=== PATIENT | female | born 1985 | race Caucasian/White ===

== ENCOUNTER 2018-04-11 08:00 | Emergency (ER) | payer MEDICAID ==
[~2018-04-11] VITALS: Ht 158.8 cm; Wt 73.8 kg
[~2018-04-11 08:00] MED LIST: BENZ1LOZ61 PO; CLIN60GE TOP; GUAI120015 PO; GUAI600T45 PO; HYDR-4383 PO; LOPE2CAP PO; NO HOME MEDS; ONDA4TAB6 PO; ONDA8TAB9 PO; PREN1TAB79 PO
[2018-04-11] MEDS ORDERED: famotidine 20mg tablet PO ONE (08:40)
[2018-04-11] MEDS ORDERED: LIDOcaine Viscous 15ml cup PO ONE (08:40)
[2018-04-11] MEDS ORDERED: mag hydrox/Alum hydrox/simeth 30ml oral suspension PO ONE (08:40)
[2018-04-11 09:02] LABS: BASOPHILS % (AUTO) 0.5 % (0-1); EOSINOPHILS # (AUTO) 0.1 X10'3 (0-0.9); EOSINOPHILS % (AUTO) 1.5 % (0-6); HEMATOCRIT 35.4 % (35.0-45.0); HEMOGLOBIN 11.7 g/dl (12.0-16.0); LYMPHOCYTES # (AUTO) 2.6 X10'3 (1.1-4.8); LYMPHOCYTES % (AUTO) 35.1 % (21-51); MEAN CORPUSCULAR HEMOGLOBIN 29.4 PG (27.0-31.0); MEAN CORPUSCULAR VOLUME 89.1 FL (78-98); MEAN PLATELET VOLUME 8.3 FL (7.4-10.4); MONOCYTES # (AUTO) 0.3 X10'3 (0-0.9); MONOCYTES % (AUTO) 4.7 % (2-12); NEUTROPHILS # (AUTO) 4.3 X10'3 (1.8-7.7); NEUTROPHILS % (AUTO) 58.2 % (42-75); PLATELET COUNT 291 X10'3 (140-440); RED BLOOD COUNT 3.97 X10'6 (4.20-5.60); RED CELL DISTRIBUTION WIDTH 13.8 % (11.5-14.5); WHITE BLOOD COUNT 7.4 X10'3 (4.5-11.0)
[2018-04-11 09:20] LABS: ALANINE AMINOTRANSFERASE 29 U/L (12-78); ALBUMIN 3.3 G/DL (3.4-5.0); ALBUMIN/GLOBULIN RATIO 1.1 (1.1-1.5); ALKALINE PHOSPHATASE 59 IU/L (46-116); ANION GAP 10 (8-16); ASPARTATE AMINO TRANSFERASE 15 U/L (10-37); BILIRUBIN,TOTAL 0.1 MG/DL (0.1-1.0); BLOOD UREA NITROGEN 9 MG/DL (7-18); BUN/CREATININE RATIO 14.5 (6.6-38.0); CALCIUM 8.7 MG/DL (8.5-10.1); CHLORIDE 105 MMOL/L (99-107); CREATININE 0.62 MG/DL (0.40-0.90); GLUCOSE 107 MG/DL (70-104); POTASSIUM 3.5 MMOL/L (3.5-5.1); PROTHROMBIN TIME 9.9 SECONDS (9.0-12.0); SODIUM 141 MMOL/L (135-145); TOTAL CARBON DIOXIDE 25.6 MMOL/L (24-32); TOTAL PROTEIN 6.4 G/DL (6.4-8.2); eGFR > 90 ML/MIN
[2018-04-11 09:28] LABS: BETA HCG,QUANTITATIVE < 1.0 mIU/ml; LIPASE 135 U/L (73-393)
[2018-04-11 09:47] LABS: URINE HCG NEGATIVE (NEG)
[2018-04-11 10:06] LABS: CLARITY,URINE CLEAR (Clear); COLOR,URINE YELLOW (Yellow); GLUCOSE, URINE NEGATIVE (Neg); KETONES,URINE NEGATIVE (Neg); LEUKOCYTE ESTERASE ,URINE NEGATIVE (Neg); NITRITES, URINE NEGATIVE (Neg); OCCULT BLOOD,URINE NEGATIVE (Neg); PH,URINE 5.5 (4.8-8.0); PROTEIN,URINE NEGATIVE (Neg); UROBILINOGEN,URINE 0.2 E.U/dL (0.2-1.0)
[2018-04-11 10:09] LABS: UA COLLECTION TYPE CLN CATCH MIDSTREAM
[2018-04-11] MEDS ORDERED: OMEP20TA23 PO (10:42)
[2018-04-11 11:09] VITALS: BP 98/54
== END 2018-04-11 11:12 | disposition home or self-care (01) ==
LOC: ER 08:00
DX: R10.13 Epigastric pain (principal); R11.2 Nausea with vomiting, unspecified; G89.29 Other chronic pain; F12.90 Cannabis use, unspecified, uncomplicated; Z98.890 Other specified postprocedural states; Z56.0 Unemployment, unspecified; Z79.2 Long term (current) use of antibiotics; Z79.899 Other long term (current) drug therapy
CPT/HCPCS: 36415; 76700; 80053; 81003; 81025; 83690; 84702; 85025; 85610; 99285

== ENCOUNTER 2018-06-29 19:57 | Emergency (ER) | payer MEDICAID ==
[~2018-06-29] VITALS: Ht 157.5 cm; Wt 68.0 kg
[~2018-06-29 19:57] MED LIST changes: +OMEP20TA23 PO
[2018-06-29 20:00] VITALS: BP 130/64
[2018-06-29] MEDS ORDERED: ipratropium/albuterol 3ml nebule NEB ONE (20:15)
[2018-06-29] MEDS ORDERED: dexamethasone sod phosphate 10mg/ml inj PO STA (20:31)
[2018-06-29] MEDS ORDERED: AZIT-63 PO (20:33)
[2018-06-29] MEDS ORDERED: ALBU8.5H8 IH (20:33)
== END 2018-06-29 21:10 | disposition home or self-care (01) ==
LOC: ER 19:57
DX: J20.9 Acute bronchitis, unspecified (principal); F41.9 Anxiety disorder, unspecified; G89.29 Other chronic pain; F17.210 Nicotine dependence, cigarettes, uncomplicated; F12.10 Cannabis abuse, uncomplicated; Z56.0 Unemployment, unspecified; Z79.899 Other long term (current) drug therapy
CPT/HCPCS: 71046; 94640; 94760; 99283; J1100

== ENCOUNTER 2019-11-09 21:08 | Emergency (ER) | payer MEDICARE, MEDICAID ==
[~2019-11-09] VITALS: Ht 157.5 cm; Wt 63.3 kg
[~2019-11-09 21:08] MED LIST changes: +ALBU8.5H8 IH
[2019-11-09 21:11] VITALS: BP 127/86
[2019-11-09 21:56] LABS: URINE HCG NEGATIVE (NEG)
[2019-11-09 21:59] LABS: CLARITY,URINE CLEAR (Clear); COLOR,URINE YELLOW (Yellow); GLUCOSE, URINE NEGATIVE (Neg); KETONES,URINE NEGATIVE (Neg); LEUKOCYTE ESTERASE ,URINE NEGATIVE (Neg); NITRITES, URINE NEGATIVE (Neg); OCCULT BLOOD,URINE NEGATIVE (Neg); PROTEIN,URINE NEGATIVE (Neg); UROBILINOGEN,URINE 0.2 E.U/dL (0.2-1.0)
[2019-11-09 22:04] LABS: UA COLLECTION TYPE CLN CATCH MIDSTREAM
[2019-11-09] MEDS ORDERED: METR500T PO (22:25)
[2019-11-09] MEDS ORDERED: CEPH250T PO (22:25)
== END 2019-11-09 22:46 | disposition home or self-care (01) ==
LOC: ER 21:08
DX: N76.0 Acute vaginitis (principal); G89.29 Other chronic pain; B96.89 Other specified bacterial agents as the cause of diseases classified elsewhere; F41.9 Anxiety disorder, unspecified; F12.90 Cannabis use, unspecified, uncomplicated; Z98.890 Other specified postprocedural states; Z72.89 Other problems related to lifestyle; Z56.0 Unemployment, unspecified; Z79.899 Other long term (current) drug therapy
CPT/HCPCS: 81003; 81025; 99283

== ENCOUNTER 2024-11-10 09:53 | Outpatient (CLI) | payer MEDICAID ==
[~2024-11-10 09:53] MED LIST changes: +ALBU8.5H17 IH; -ALBU8.5H8 IH; -BENZ1LOZ61 PO; +BENZ1LOZ74 PO
--- NOTE | 2024-11-10 10:17 | ELECTROCARDIOGRAPH REPORT ---
[facility] Test Date: 2024-11-10 Test Time: 10:06:51 Pat Name: RADHA ROBB Department: PRE/OP CARDIOLOGY Room: Gender: F [place]about Hand: DARIUSZ : 1985 Requested By: HARSHAD ARGUELLO Order Number: [id number] Reading MD: Dr. BARB Eli Measurements Intervals [place] Rate: 69 P: 65 NV: 173 QRS: 64 QRSD: 96 T: 59 QT: 421 QTc: 451 Interpretive Statements Sinus rhythm Electronically Signed On 11-10-2024 19:14:[address] BARB Eil Please click the below link to view image of tracing.
== END 2024-11-10 23:59 | disposition home or self-care (01) ==
LOC: RAD 09:53
PROVIDERS: ATTEND Physician Assistant
DX: F11.20 Opioid dependence, uncomplicated (principal); I49.8 Other specified cardiac arrhythmias
CPT/HCPCS: 93005

== ENCOUNTER 2025-06-19 16:35 | Emergency (ER) | payer MEDICAID ==
[~2025-06-19] VITALS: Ht 157.5 cm; Wt 84.6 kg
[2025-06-19 16:36] VITALS: BP 121/77; PULSE 117; RESP 16; O2SAT 96
[2025-06-19 17:03] LABS: STREP A SCREEN NEGATIVE (Neg)
[2025-06-19] MEDS ORDERED: AMOX500C2 PO (17:17)
--- NOTE | 2025-06-19 17:17 | Physician Documentation ---
History of Present Illness ~ Chief Complaint: Sore Throat Stated Complaint: COLD SYMPTOMS Time Seen by MD: 16:57 OK to notify your PCP?: Yes [facility] Source: patient Mode of Arrival: POV Exam Limitations: no limitations HPI Patient reports having cough, congestion as well as sore throat with white spots on her tonsils for the past 3 days. She has been febrile as well and having body aches. She took ibuprofen 30 minutes prior to arrival. no known exposure to strep throat. She denies any chest pain, shortness of breath. Medication Reconciliation Allergies: Coded Allergies: No Known Allergies (Unverified , 06/29/18) Scheduled Amoxicillin Trihydrate* (Amoxicillin*), 1 CAP PO Q12H Benzocaine/Menthol (Cepacol Sore Throat Lozenge), 1 KOBY PO Q6H Clindamycin Phosphate (Cleocin T), 1 APPLIC TOP Q12H Guaifenesin (Mucinex), 1 TAB PO Q12H Loperamide Hcl (Loperamide), 2 CAP PO Q6H Omeprazole Magnesium (Prilosec Otc), 1 TAB PO DAILY Ondansetron Hcl (Zofran), 1 TABLET PO Q6H Ondansetron Hcl (Zofran), 1 TABLET PO Q6H Vits W-Ca,Fe,FA(<1Mg) ( Vitamins), 1 TABLET PO DAILY Scheduled PRN Albuterol Sulfate (Proair Hfa), 2 PUFFS IH Q4H PRN for SOB or wheezing Guaifenesin (Mucinex), 600 MG PO BID PRN for cough Hydrocodone/Acetaminophen ([place] 5-325 Tablet), 1 TAB PO Q6H PRN PRN for pain Ondansetron (Zofran Odt), 8 MG PO QID PRN for pain Miscellaneous Medications Home Med List (No Home Medications), (Reported) Past Medical History Past Medical History: Bronchitis, UTI, Chronic Back Pain, Anxiety Past Surgical History: abdominal surgery, , orthopedic surgeries, other Other Past Surgical History: Laproscopic Sx Alcohol Use: Occasionally Drug Use: marijuana Lives with: Family Lives In: Home Occupation: unemployed Review of Systems All Other Systems at this time: Reviewed and Negative Physical Exam Vital Signs: RN Vital Signs have been reviewed: Yes, Temperature: 102.7, Source: Oral, Heart Rate: 117, Respiratory Rate: 16, BP: 121/77, Pulse Oximetry: 96, Weight: 84.600 Oxygen Flow Rate: 0 Pulse Oximetry Reflects: adequate oxygenation Physical Exam General: Alert, mild distress. HEENT: PERRL, EOMI, no injection, moist mucous membranes. Bilateral TM clear. Sinuses nontender bilaterally. Posterior pharynx erythema, moderate exudates to bilateral tonsils, tonsils 3+ bilaterally, uvula midline. Neck: Full range of motion. Anterior cervical lymphadenopathy. Respiratory: Lungs clear, no respiratory distress. Chest: No accessory muscle use. Cardiovascular: Regular rate and rhythm, no murmurs. Gastrointestinal: Soft, nontender, nondistended. Bowels sounds present. Extremities: Normal range of motion, no deformity. Neurologic: Oriented x4. Psychiatric: Normal mood and affect. Skin: Normal color, warm and diaphoretic. No edema, no ecchymosis. Progress Results/Orders Reviewed/noted all lab results: Yes Results/Orders Completed Orders - OLIMPIA KELLY [employer]IC[employer] Dexamethasone Inj (Decadron 10mg/Ml Inj) (06/19/25 17:13) Amoxicillin Capsule (Trimox Capsule) (06/19/25 17:15) Medications Received in ER Medications (Trade) Dose Ordered Sig/Ralf Route PRN Reason Start Time Stop Time Status Last Admin Dose Admin (Tylenol tablet) 650 mg ONCE ONCE PO 06/19/25 16:40 06/19/25 16:41 DC 06/19/25 16:46 650 MG (Decadron 10mg/ ml inj) 10 mg ONCE STAT PO 06/19/25 17:13 06/19/25 17:15 DC 06/19/25 17:29 10 MG (Trimox capsule) 500 mg ONCE ONCE PO 06/19/25 17:15 06/19/25 17:16 DC 06/19/25 17:28 500 MG Vital Signs 06/19/25 06/19/25 16:36 17:34 Temp 102.7 102.7 Pulse 117 Resp 16 B/P (MAP) 121/77 Pulse Ox 96 O2 Flow Rate 0 Laboratory Tests Test 06/19/25 16:41 Group A Streptococcus Rapid Negative Medical Decision Making Additional information obtaine: old records Findings Patient with Decadron to help with her tonsillar swelling. Started patient on amoxicillin even though her strep swab was negative as this could have been a false negative or poor sample. There was obvious large amount of exudates on her bilateral tonsils which are quite enlarged. She also has a fever, diaphoretic and is tachycardic for which we gave Tylenol in the department. I suspect that there is a bacterial component and this is not just a viral illness. Ear Diff. Dx: Considerations: Include: Other Eye Diff. Dx: Considerations: Include: Other Nose Diff. Dx: Considerations: Include: Other Tooth Diff. Dx: Considerations: Include: Other Throat Diff Dx: Considerations: Include: Epiglottitis, Infection mononucleosis, Ryan's angina, Peritonsillar abscess, Pharyngitis-strepococcal, Pharyngitis- viral Departure Disposition: HOME / SELF CARE / HOMELESS Impression: Primary Impression: Pharyngitis Condition: Stable Discharge Instructions: Pharyngitis Additional Instructions: Take all antibiotics as prescribed. Return back here for any new or worsening symptoms. Continue taking Tylenol and/or ibuprofen for pain and fever relief at home. Follow up with your regular doctor in 1 week if her symptoms have not resolved Referrals: NO PRIMARY CARE PROVIDER (PCP) Prescriptions Amoxicillin Trihydrate* (Amoxicillin*) 500 Mg Capsule 1 CAP PO Q12H for 10 Days, #20 CAP Prov: OLIMPIA KELLY 06/19/25 Education Educated: Patient Educated regarding: diagnosis, treatment, prognosis, need for follow up Additional Comment Medical Screen Exam This patient recieved a medical screening examination. After reviewing the individual's medical complaints with presenting symptoms and performing an appropriate physical examination, it was determined that no immediate life-threatening emergency medical condition is present. This individual is also not a women having contractions. Signature Scribe Signature: . Attestation: Scribed for Olimpia Kelly by Olimpia Foss NP . 06/19/25 17:18 Parts of this note were created using [employer] ([employer]) voice recognition software program. While efforts were made to correct any mistakes made by this voice recognition software program, nonsensical phrases may remain in this note. In addition, there may be errors and syntax, grammar, content and spelling. OLIMPIA KELLY Jun 19, 2025 17:17
[2025-06-19] MEDS: dexamethasone sod phosphate 10mg/ml inj PO STA (17:29)
[2025-06-19 17:34] VITALS: TEMP 102.7
== END 2025-06-19 17:35 | disposition home or self-care (01) ==
LOC: ER 16:35
DX: J02.9 Acute pharyngitis, unspecified (principal); G89.29 Other chronic pain; F41.9 Anxiety disorder, unspecified; F12.90 Cannabis use, unspecified, uncomplicated; Z87.440 Personal history of urinary (tract) infections; Z79.899 Other long term (current) drug therapy; Z56.0 Unemployment, unspecified; Z98.890 Other specified postprocedural states
CPT/HCPCS: 87081; 87880; 99284; J1100

== ENCOUNTER 2025-06-22 12:59 | Emergency (ER) | payer MEDICAID ==
[~2025-06-22] VITALS: Ht 157.5 cm; Wt 85.1 kg
[~2025-06-22 12:59] MED LIST changes: +AMOX500C2 PO
[2025-06-22 13:01] VITALS: BP 147/89; PULSE 84; RESP 16; O2SAT 99
--- NOTE | 2025-06-22 14:59 | Physician Documentation ---
History of Present Illness ~ Chief Complaint: Sore Throat Stated Complaint: STREP THROAT Time Seen by MD: 14:07 Primary Medical Doctor: [facility] This 39-year-old female returns to the emergency department after being seen three days prior and diagnosed with strep throat, patient reports her sore throat is improving though she has developed some sores to the roof of her mouth. Patient reports no other acute symptoms or concerns and reports no fever since beginning antibiotic treatment for strep throat. Medication Reconciliation Allergies: Coded Allergies: No Known Allergies (Unverified , 06/22/25) Scheduled Acyclovir (Acyclovir), 1 TAB PO Q8H Amoxicillin Trihydrate* (Amoxicillin*), 1 CAP PO Q12H Benzocaine/Menthol (Cepacol Sore Throat Lozenge), 1 KOBY PO Q6H Clindamycin Phosphate (Cleocin T), 1 APPLIC TOP Q12H Guaifenesin (Mucinex), 1 TAB PO Q12H Loperamide Hcl (Loperamide), 2 CAP PO Q6H Omeprazole Magnesium (Prilosec Otc), 1 TAB PO DAILY Ondansetron Hcl (Zofran), 1 TABLET PO Q6H Ondansetron Hcl (Zofran), 1 TABLET PO Q6H Vits W-Ca,Fe,FA(<1Mg) ( Vitamins), 1 TABLET PO DAILY Scheduled PRN Albuterol Sulfate (Proair Hfa), 2 PUFFS IH Q4H PRN for SOB or wheezing Guaifenesin (Mucinex), 600 MG PO BID PRN for cough Hydrocodone/Acetaminophen ([place] 5-325 Tablet), 1 TAB PO Q6H PRN PRN for pain Ondansetron (Zofran Odt), 8 MG PO QID PRN for pain Miscellaneous Medications Home Med List (No Home Medications), (Reported) Past Medical History Past Medical History: Bronchitis, UTI, Chronic Back Pain, Anxiety Past Surgical History: abdominal surgery, , orthopedic surgeries, other Other Past Surgical History: Laproscopic Sx Alcohol Use: Occasionally Drug Use: marijuana Lives with: Family Lives In: Home Occupation: unemployed Review of Systems ROS As stated above in the HPI, otherwise all systems are reviewed and negative. Physical Exam Vital Signs: Temperature: 97.5, Source: Temporal, Heart Rate: 84, Respiratory Rate: 16, BP: 147/89, Pulse Oximetry: 99, Weight: 85.100 Oxygen Flow Rate: 0 Physical Exam VITALS: Reviewed and as above. GENERAL: Alert, nontoxic appearing, no apparent distress. HEENT: Right tonsil 2+ single small white patch, left tonsil 1+ no patches or exudates, uvula midline, bilateral tonsils erythematous, no drooling. Very small vesicular appearing lesions to roof of mouth at the base of anterior teeth, no erythema, no fluctuance. No submandibular swelling, no elevation of the tongue RESPIRATORY: No increased work of breathing, no respiratory distress, speaking in full clear sentences Progress Results/Orders Results/Orders Completed Orders - NO MCLEOD Ibuprofen Tablet (Motrin Tablet) (06/22/25 15:10) Medications Received in ER Medications (Trade) Dose Ordered Sig/Ralf Route PRN Reason Start Time Stop Time Status Last Admin Dose Admin (Motrin tablet) 800 mg ONCE ONCE PO 06/22/25 15:10 06/22/25 15:11 DC 06/22/25 15:21 800 MG Vital Signs 06/22/25 06/22/25 13:01 15:24 Temp 97.5 97.5 Pulse 84 Resp 16 B/P (MAP) 147/89 Pulse Ox 99 O2 Flow Rate 0 Medical Decision Making Additional information obtaine: N/A Findings 39-year-old female presented back to emergency department three days with pain and lesions to roof of mouth after being diagnosed with strep throat and started on oral antibiotics. Physical exam of the lesions appear to be herpetic lesions. Physical exam also significant for tonsillar swelling greater on the right tonsil though reassuring patient reports symptoms are improving, hand airway is intact. Low suspicion for peritonsillar abscess requiring drainage. Patient is otherwise well-appearing and appropriate for outpatient follow up. Patient provided careful return to care precautions follow up instructions, and home care instructions. ED attending Dr. Pascual consulted on case, Dr. Pascual independently examined patient. Ear Diff. Dx: Considerations: Unlikely: Abrasion, Cerumen impaction, Foreign body, Otitis externa, Barotrauma, Otitis media, Perforation, Referred pain- dental, Referred pain-pharyngitis, Referred pain-sinusitis, Referred pain-TMJ syn., Tympanic Membrane Injury, Other Eye Diff. Dx: Considerations: Unlikely: [place], Conjuctivits-allergic, Conjuctivitis-bacterial, Conjuctivits-chlamydial, Conjuctivitis-viral, Corneal abrasion, Corneal laceration, Corneal ulceration, Foreign body-conjuctiva, Foreign body-corneal, Foreign body-intraocular, Foreign body-lid, Glaucoma, Globe rupture, Hordeolum, Iritis, Orbital cellulitis, Periobital cellulitis, Retinal artery occulsion, Retinal vein occlusion, Rust ring, Subconjunctival hem, Ultraviolet keratitis, Uveitis, Vitreous hemorrhage, Other Nose Diff. Dx: Considerations: Unlikely: Abrasion, Anterior nasal bleed, Avulsion, Contusion, Coagulopathy, Fracture-nasal bone, Fracture-septum, Hypertension, Laceration, Other, Posterior nasal bleed, Retained foreign body, Septal hematoma Tooth Diff. Dx: Considerations: Include: Alveolar fracture, Aveolar osteitis, ANUG, Facial cellulitis, Periapical abscess, Periodontal abscess, Post- extraction bleeding, Trigeminal neuralgia Throat Diff Dx: Considerations: Include: Epiglottitis, Esophageal candidiasis, Hand foot mouth disease, Herpangina, Herpetic stomatitis, Herpes simplex, Ryan's angina, Peritonsillar abscess, Peritonsillar cellulitis, Pharyngitis- diphtheria, Pharyngitis-strepococcal, Pharyngitis-viral, Thrush, URI Departure Time of Disposition: 15:12 Disposition: 01 HOME / SELF CARE / HOMELESS Impression: Primary Impression: Viral vesicles of mouth Condition: Improved Additional Instructions: I suspect the patient's on the top of your mouth are related to a viral infection secondary to your bacterial infection. Please take the prescribed acyclovir. You may use ibuprofen and or Tylenol as needed for pain. Continue to take your previously prescribed antibiotics. Please follow up with your primary care provider in the next few days. Please return to the emergency department for any new or worsening concerning symptoms including but not limited to fever over 100.4 that does not lower with ibuprofen or Tylenol, or if you develop difficulty swallowing or breathing. Referrals: NO PRIMARY CARE PROVIDER (PCP) Prescriptions Acyclovir (Acyclovir) 400 Mg Tablet 1 TAB PO Q8H for 7 Days, #21 TAB Prov: NO MCLEOD 06/22/25 Education Educated: Patient Educated regarding: diagnosis, treatment, prognosis, need for follow up Signature Scribe Signature: No scribe Attestation: The note accurately reflects work and decisions made by me.JACINTO Milner 06/22/25 15:14 NO MCLEOD Jun 22, 2025 14:59
[2025-06-22] MEDS ORDERED: ACYC-126 PO (15:08)
[2025-06-22] MEDS: ibuprofen tablet 400 MG TABLET PO ONE (15:21)
[2025-06-22 15:24] VITALS: TEMP 97.5
== END 2025-06-22 15:25 | disposition home or self-care (01) ==
LOC: ER 12:59
DX: R23.8 Other skin changes (principal); G89.29 Other chronic pain; F41.9 Anxiety disorder, unspecified; F12.90 Cannabis use, unspecified, uncomplicated; Z87.440 Personal history of urinary (tract) infections; Z79.899 Other long term (current) drug therapy; Z56.0 Unemployment, unspecified; Z72.89 Other problems related to lifestyle; Z98.890 Other specified postprocedural states
CPT/HCPCS: 99283